=== PATIENT | male | born 1935 | race Caucasian/White ===

== ENCOUNTER 2017-06-21 14:20 | Emergency (ER) | payer MEDICARE ==
[2017-06-21 15:20] LABS: CALCIUM 7.5 mg/dL (8.5-10.1); CARBON DIOXIDE 28.3 mmol/L (21-32); CHLORIDE SERUM 102 mmol/L (98-107); CREATININE SERUM 1.2 mg/dL (0.7-1.3); GLUCOSE SERUM 353 mg/dL (74-106); POTASSIUM SERUM 4.7 mmol/L (3.5-5.1); SODIUM SERUM 136 mmol/L (136-145)
[2017-06-21 15:24] LABS: ALKALINE PHOSPHATASE 96 U/L (46-116); ALT/SGPT 20 U/L (16-63); AST/SGOT 12 U/L (15-37); BILIRUBIN TOTAL 0.5 mg/dL (0.20-1.00); TOTAL PROTEIN, SERUM 6.2 g/dL (6.4-8.2)
[2017-06-21 15:25] LABS: ALBUMIN 2.7 g/dL (3.4-5.0)
[2017-06-21 15:35] LABS: BASOPHIL % 0.5 % (0-2)
[2017-06-21 15:47] LABS: RED CELL DISTRIBUTION WIDTH 14.7 % (11.5-14.5)
[2017-06-21 15:48] LABS: PLATELET COUNT 185 x10^3mcL (130-400)
[2017-06-21] MEDS ORDERED: HUMULIN 70/30 KW3 ML (16:10)
[2017-06-21 18:31] VITALS: BP 112/72
== END 2017-06-21 18:31 | disposition short-term general hospital (02) ==
LOC: ED 14:20
PROVIDERS: Emergency Medicine
DX: E11.65 Type 2 diabetes mellitus with hyperglycemia (principal); I10 Essential (primary) hypertension
CPT/HCPCS: 82962; 83880; J7030; Q0092